=== PATIENT | male | born 1970 | race Caucasian/White ===

== ENCOUNTER 2020-11-05 17:12 | Inpatient (IN) | payer OTHER ==
[~2020-11-05] VITALS: Ht 165.1 cm; Wt 73.5 kg
[2020-11-05 17:42] LABS: HEMATOCRIT 42.8 % (42.0-52.0); HEMOGLOBIN 14.1 gm/dL (14.0-18.0); MCH 26.9 pg (26.0-34.0); MCHC 32.9 g/dL (28.0-37.0); MCV 81.8 fL (80.0-100.0); PLATELET COUNT 399 thou/uL (150-400); RBC 5.23 mil/uL (4.50-6.00); RDW 13.8 % (10.5-14.5); WBC 30.8 thou/uL (4.0-11.0)
[2020-11-05 17:50] LABS: CALCIUM 8.1 mg/dL (8.5-10.1); CREATININE 0.8 mg/dL (0.7-1.3); POTASSIUM 3.7 mmol/L (3.5-5.1)
[2020-11-05 17:54] VITALS: BP 150/95
[2020-11-05 18:04] LABS: ABSOLUTE NEUTROPHILS 23.1 thou/uL (1.4-8.2); ATYPICAL LYMPHS 4 %; PLATELET ESTIMATE NORMAL
[2020-11-05 18:06] LABS: ALBUMIN 2.4 g/dL (3.4-5.0); TOTAL BILIRUBIN 1.5 mg/dL (0.2-1.0); TOTAL PROTEIN 6.8 g/dL (6.4-8.2)
[2020-11-05 18:58] LABS: URINE BILIRUBIN NEGATIVE (Negative); URINE BLOOD NEGATIVE (Negative); URINE CLARITY CLEAR; URINE COLOR YELLOW; URINE GLUCOSE-RANDOM* NEGATIVE (Negative); URINE KETONES NEGATIVE (Negative); URINE LEUKOCYTES-REFLEX NEGATIVE (Negative); URINE NITRITE-REFLEX NEGATIVE (Negative); URINE PROTEIN (DIPSTICK) NEGATIVE (Negative); URINE SPECIFIC GRAVITY <= 1.005 (1.005-1.035)
--- NOTE | 2020-11-05 19:02 | NUR ---
REPORT GIVEN TO ACE ROME AT THIS TIME.
--- NOTE | 2020-11-05 20:24 | NUR ---
Pt gives permission to give health information to sister in law-Fredy and brother Leander
[2020-11-05 20:25] VITALS: BP 126/74
[2020-11-05 20:34] VITALS: BP 117/72
[2020-11-05 21:47] VITALS: BP 120/78
--- NOTE | 2020-11-05 23:18 | NUR ---
ADMISSION ASSESSMENT COMPLETED VIA PAID INTERNSHIP. ORIENTED TO ROOM AND USE OF CALL LIGHT. PT REPORTS A CONSTANT PAIN TO LLQ- MORPHINE GIVEN WITH RELIEF. PT DENIES ANY NAUSEA OR VOMITING. FEVER OF 100.3, TYLENOL GIVEN. IVF AND ABTS INFUSING. HARRINGTON TO D/D-DARK NOAH U/O NOTED-GOOD AMT.PT IS PLEASANT AND COOPERATIVE.SCDS APPLIED. ADVISED TO CALL WITH NEEDS. HE IS STEADY ON HIS FEET WITH NO FALL PRIORS-BUT WITH HARRINGTON AND IV TUBING AND OPIOIDS, HE WILL NEED SBA FOR NOW. EDUCATION PROVIDED-CONSENTS HOWEVER NOT SIGNED BECAUSE THEY ARE ALL IN AF[place]AN.WILL CONTINUE WITH POC TILL EOS.
[2020-11-06 05:16] LABS: HEMATOCRIT 39.4 % (42.0-52.0); HEMOGLOBIN 13.1 gm/dL (14.0-18.0); MCH 27.7 pg (26.0-34.0); MCHC 33.1 g/dL (28.0-37.0); MCV 83.5 fL (80.0-100.0); RBC 4.72 mil/uL (4.50-6.00)
[2020-11-06 05:39] LABS: CALCIUM 7.8 mg/dL (8.5-10.1); CREATININE 0.7 mg/dL (0.7-1.3); POTASSIUM 3.8 mmol/L (3.5-5.1)
[2020-11-06 07:47] VITALS: BP 123/76
--- NOTE | 2020-11-06 09:59 | NUR ---
ASSUMED PT CARE THIS AM. PT IS ALERT & ORIENTED X4 AND SPEAKS SERBIAN AND A LITTLE BIT OF MONTENEGRIN WHEN ASKED. PT HAS IV SITE ON L FA. PT HAS HARRINGTON CATH IN PLACE. PT IS ACCUCHECK ACHS. PT STATED LAST BM WAS YESTERDAY. PT HAS SCD ON. INFORMED MD ABOUT PT FEVER THIS AM AND GIVEN TYLENOL. PLACED A COOL WASH CLOTH ON THE FOREHEAD. PT TOLERATED DIET THIS AM. PT ON THE BED SLEEPING, BED ON THE LOWEST POSITION, SIDE RAILS UP, CALL LIGHT WITHIN REACH. WILL CONTINUE TO MONITOR PT. FOLLOW POC.
[2020-11-06 17:28] VITALS: BP 142/94
[2020-11-06 19:56] VITALS: BP 140/98
--- NOTE | 2020-11-06 23:18 | NUR ---
ASSUMED PT CARE AT AROUND 1915 HRS. PT WITH FAMILY IN ROOM-FAMILY ASKING FOR THE PLAN OF CARE. I SPOKE VIA FACE TIME TO PT'S NIECE WHO SPEAKS YORUBA. QUESTIONS ANSWERED. LATER DR DOUGHERTY CALLED [facility] AND REPORTED THAT THEY WILL ROUND ON PATIENT TOMORROW. PT IS NPO. FEBRILE-CONTROLLED BY TYLENOL. PT IS GETTING MORPHINE FOR LLQ PAIN-RATES THE PAIN AT AROUND 7-8/10.PT IS ALSO ALLISONT EYAL, ACCUCHECK @139. PT DOES NOT APPEAR TO BE IN ANY DISTRESS AT THIS TIME, REMAINS ON ROOM AIR, HARRINGTON TO D/D WITH DARK YELLOW UIRNE OUTPUT. NO FURTHER CONCERNS AT THIS TIME. WILL CONTINUE WITH POC TILL EOS.
[2020-11-07 04:03] VITALS: BP 126/89
[2020-11-07 05:17] LABS: HEMATOCRIT 40.1 % (42.0-52.0); HEMOGLOBIN 13.1 gm/dL (14.0-18.0); MCH 27.6 pg (26.0-34.0); MCHC 32.7 g/dL (28.0-37.0); MCV 84.4 fL (80.0-100.0); RBC 4.74 mil/uL (4.50-6.00); RDW 14.1 % (10.5-14.5); WBC 29.9 thou/uL (4.0-11.0)
[2020-11-07 05:30] LABS: CALCIUM 8.2 mg/dL (8.5-10.1); CREATININE 0.8 mg/dL (0.7-1.3); POTASSIUM 4.7 mmol/L (3.5-5.1)
[2020-11-07 07:34] VITALS: BP 131/85
--- NOTE | 2020-11-07 08:42 | NUR ---
ASSUMED CARE OF PT AT 0700 THIS MORNING. PT WAS ADMITTED FOR DIVERTICULITIS AND ACUTE URINARY RETENTION. PT IS VENEZUELAN SPEAKING ONLY. PT HAS BEEN ON NPO STATUS UNTIL 0820 THIS MORNING AND IS NOW ON CLEAR LIQUIDS DIET. RN STUDENT IS VENEZUELAN SPEAKING AND HAS HELPED TO TRANSLATE FOR DR. SÁNCHEZ. PT IS A/OX4, LUNGS CLEAR BILAT, EYES PERRLA, NEURO - UNREMARKABLE, ABD SOFT NONTENDER WITH ACTIVE BOWEL SOUNDS. IV IN LEFT FA WITH D5W @ 75ML/HR. SCD'S IN PLACE. ASSESSMMENTS OTHERWISE UNREMARKABLE. CALL LIGHT AND OTHER NEEDS ARE WITHIN REACH OF THE PT.
--- NOTE | 2020-11-07 12:17 | NUR ---
INITIAL ASSESSMENT: FRANCIS reviewed chart and spoke with nursing and attending physician. Pt was admitted from home due to diverticulitis. Surgery is following. Pt started on clear liquids today. Pt is primarily German speaking. Staff has been communicating with pt's niece, who is communicating with pt and family. FRANCIS left voice message for pt's niece, Kerry ([phone]). Requested call back to assist with assessment and discharge planning. Pt does not have health insurance. Pt was screened by [employer] and does not qualify for Medicaid. Plan is for pt to discharge home when medically stable. FRANCIS is following to assist as needed with discharge planning.
--- NOTE | 2020-11-07 18:03 | NUR ---
agree with the RIG MECHANICOusmane Naik's assessment.
[2020-11-07 19:55] VITALS: BP 127/73
--- NOTE | 2020-11-08 04:33 | NUR ---
RECEIVED CARE OF THIS PATIENT AT 1900. PATIENT ALERT AND ORIENTED X4. PATIENT UNDERSTANDS SOME MONGOLIAN BUT HAD FAMILY TRANSLATE SOME. C/O MILD PAIN IN LOWER R ABD. REFUSED PAIN MED. ACCUCHECK WAS 130, NO COVERAGE NEEDED. HARRINGTON PATENT DARK YELLOW URINE. NPO SINCE MN. SLEPT MOST OF NIGHT.
[2020-11-08 05:20] LABS: HEMATOCRIT 38.9 % (42.0-52.0); HEMOGLOBIN 12.5 gm/dL (14.0-18.0); MCH 27.1 pg (26.0-34.0); MCV 84.6 fL (80.0-100.0); RBC 4.6 mil/uL (4.50-6.00); RDW 13.7 % (10.5-14.5); WBC 20.9 thou/uL (4.0-11.0)
[2020-11-08 05:27] LABS: CREATININE 0.8 mg/dL (0.7-1.3); MAGNESIUM 2.1 mg/dL (1.8-2.4); POTASSIUM 4.7 mmol/L (3.5-5.1)
[2020-11-08 07:42] VITALS: BP 118/78
[2020-11-08 12:01] VITALS: BP 123/81
--- NOTE | 2020-11-08 12:02 | NUR ---
ASSUMED PT CARE AROUND 0700. PT ALERT X ORIENTED X 4. ON ROOM AIR. STAND BY ASST. IV LF/FAWITH D5/NS/125MLS/HR. NPO SINCE MIDNIGHT.HAD CAT SCAN TODAY MORNING.HARRINGTON CATHTER WITH SLIGHT YELLOW URINE. FAMILY IN THE ROOM. PT SPEAKS ESPANIOL. CALL LIGHT IN REACH. WILL CONTINUE TO MONITOR.
--- NOTE | 2020-11-08 14:40 | NUR ---
CM VISITED WITH PT AT BEDSIDE THIS DAY AND PT CONSENTED FOR STUDENT NURSE MATERIAL YARD CLERK TO TRANSLATE. HE INDICATED THAT HE RESIDES IN AN APARTMENT IN [place] WITH HIS BROTHER WITH 2 FLIGHTS OF STEPS TO NAVIGATE. PT INDICATED HE HAD BEEN INDEPENENT WITH GAIT AND ADLS VP GENETIC. PT AND FAMILY INDICATED THAT THEY WOULD BE ABLE TO PAY TO FILL PERSCRIPTIONS UPON DC. PT INDICATED HE PLANS TO RETURN HOME ONCE MEDICALLY STABLE. CARE TEAM INDICATED THAT PT MAY BE ABLE TO DC HOME OVER WEEKEND. NO DC NEEDS ANTICIPATED.
[2020-11-08 16:12] VITALS: BP 122/73
[2020-11-08 19:15] VITALS: BP 116/67
--- NOTE | 2020-11-09 04:39 | NUR ---
RECIEVED CARE OF THIS PATIENT AT 1900. PATIENT ALERT AND ORIETED X4. UP IN RECLINER OFF AND ON DURING NIGHT. C/O PAIN, MED GIVEN, HARRINGTON PATENT CLEAR YELLOW URINE. ACCUCHECK WAS 113. NO COVERAGE NEEDED. SLEPT OFF AND ON DURING NIGHT.
[2020-11-09 04:44] LABS: CALCIUM 8.2 mg/dL (8.5-10.1); CREATININE 0.8 mg/dL (0.7-1.3); POTASSIUM 4.3 mmol/L (3.5-5.1)
[2020-11-09 04:47] LABS: HEMATOCRIT 38.3 % (42.0-52.0); HEMOGLOBIN 12.6 gm/dL (14.0-18.0); MCH 27.6 pg (26.0-34.0); MCHC 32.9 g/dL (28.0-37.0); RBC 4.56 mil/uL (4.50-6.00); RDW 13.9 % (10.5-14.5); WBC 19.3 thou/uL (4.0-11.0)
[2020-11-09 07:05] VITALS: BP 112/78
--- NOTE | 2020-11-09 16:38 | NUR ---
ASSUMED PT CARE THIS AM. PT IS ALERT & ORIENTED X4. PT HAS IV SITE ON L FA. PT UP WITH ASSIST X1 AND HAVE A BATHROOM PRIVILEDGE. PT IS ACCUCHECK ACHS. PT C/O OF PAIN AND GIVEN PAIN MEDICATION PER PT REQUEST. PT HAS HARRINGTON CATH IN PLACE. PT IS ON ROOM AIR. LAST BM WAS TODAY. BEEN GIVING ANTIBIOTICS PER ORDERED. PT FAMILY AT THE BEDSIDE. PT ON THE CHAIR TALKING TO FAMILY. WILL CONTINUE TO MONITOR PT. FOLLOW POC.
[2020-11-09 16:48] VITALS: BP 128/76
[2020-11-09 20:01] VITALS: BP 129/74
[2020-11-10 04:53] LABS: HEMOGLOBIN 12.3 gm/dL (14.0-18.0); MCH 27.4 pg (26.0-34.0); MCHC 32.5 g/dL (28.0-37.0); MCV 84.5 fL (80.0-100.0); RBC 4.5 mil/uL (4.50-6.00); RDW 14.1 % (10.5-14.5); WBC 12.8 thou/uL (4.0-11.0)
[2020-11-10 05:05] LABS: CALCIUM 8.3 mg/dL (8.5-10.1); CREATININE 0.7 mg/dL (0.7-1.3); POTASSIUM 4.2 mmol/L (3.5-5.1)
--- NOTE | 2020-11-10 05:23 | NUR ---
ASSUMED CARE OF PT AT 1900. PT IS A/O X4 AND IS UP AD ANGEL. 99% ON ROOM AIR. VSS. AFEBRILE. HARRINGTON IN PLACE DRAINING YELLOW URINE. NO BM THIS SHIFT. C/O ABDOMINAL PAIN. PRN PAIN MEDICATION GIVEN DIRECTED. PT IS PLEASANT AND COOPERATIVE. TUVALUAN SPEAKING BUT DOES UNDERSTAND MOST EQUATORIAL GUINEAN AND IS ABLE TO COMMUNICATE AND MAKE NEEDS KNOWN. HS BS DID NOT REQUIRE COVERAGE. PT CHOSE TO SLEEP IN RECLINING CHAIR STATING THE BED MADE IS BACK HURT THE PREVIOUS NIGHT. ELEVATED BILAT FEET ON FOOT REST. REQUESTED PRN HS SLEEP MEDICATION. GIVEN DIRECTED. CALL LIGHT IS WITHIN REACH. CALLS OUT APPROPRIATELY. WILL CONTINUE TO MONITOR.
[2020-11-10 07:30] VITALS: BP 123/83
--- NOTE | 2020-11-10 11:22 | NUR ---
ASSUMED PT CARE THIS AM. PT IS ALERT & ORIENTED X4. PT HAS IV SITE ON L FA. PT IS UP AD ANGEL AND USES BATHROOM. REMOVED HARRINGTON THIS AM PER DR DOUGHERTY ORDERED. PT IS ACCUCHECK ACHS. PT RATED PAIN 07/21 THIS AM. PT TOLERATED DIET AND MEDICATION WELL. PT ON THE CHAIR. WILL CONTINUE TO MONITOR PT. FOLLOW POC.
[2020-11-10 16:25] VITALS: BP 135/89
[2020-11-10 18:53] VITALS: BP 136/74
--- NOTE | 2020-11-11 04:30 | NUR ---
patient up in chair thru noc reclined with feet elevated. stated was sleeping in chair. c/o pain x2 prn given as ordered. iv abt infused w/o difficulties.
[2020-11-11 05:40] LABS: HEMATOCRIT 38.8 % (42.0-52.0); HEMOGLOBIN 12.5 gm/dL (14.0-18.0); MCH 27.3 pg (26.0-34.0); MCHC 32.3 g/dL (28.0-37.0); MCV 84.5 fL (80.0-100.0); RBC 4.59 mil/uL (4.50-6.00); RDW 13.9 % (10.5-14.5); WBC 14.7 thou/uL (4.0-11.0)
[2020-11-11 05:54] LABS: CALCIUM 8.4 mg/dL (8.5-10.1); CREATININE 0.7 mg/dL (0.7-1.3); POTASSIUM 4.1 mmol/L (3.5-5.1)
[2020-11-11 07:26] VITALS: BP 118/76
--- NOTE | 2020-11-11 07:42 | HC ---
[facility] [place] [address] CONSULTATION Name: CHLOE CHEN Room #: 457-P ADM IN M.R.#: [id number] Admission: 11/05/20 Attend Phys: Lopez Mason MD Discharge: Date of : 72 Report #: [id number] THIS REPORT FOR: cc: FAM - No family physician/PCP FAM - No family physician/PCP Daryl Borges MD ~ DOC #: [id number] Daryl Borges MD DATE OF SERVICE: 11/07/2020 INFECTIOUS DISEASE CONSULTATION ATTENDING PHYSICIAN: Dr. Mason. REASON FOR EVALUATION: Diverticulitis complicated by perforation and peritonitis, multiple small abscesses. HISTORY OF PRESENT ILLNESS: The patient is a 50-year-old without significant medical history who presented apparently with a 2-day history of left lower quadrant pain, fever, nausea and emesis as well as diarrhea. Initial lactic acid was 1.1. White count was elevated at 30.8. Does have some atypical lymphs. CT abdomen and pelvis, extensive inflammatory changes, left pelvis involving the left sigmoid colon, multiple areas of stranding and small fluid collections adjacent to the sigmoid and left pelvis to the left pericolic gutter and the left psoas muscle. Urinalysis was unremarkable. Blood cultures collected at time of admission are negative thus far. Empirically started on piperacillin, tazobactam. He feels significantly better in terms of severity of the pain and rates it at 2/10 actively pushing on it. Denies any GI related complaints at this point. No pulmonary complaints. His appetite has been satisfactory. ALLERGIES: None known. MEDICATIONS: Include Zosyn, enoxaparin, morphine, hydrocodone, zolpidem, p.r.n. analgesics, and antiemetics. PAST SURGICAL HISTORY: Previous appendectomy. SOCIAL HISTORY: Nonsmoker. Occasional ethanol. No illicit drug use. FAMILY HISTORY: Noncontributory. REVIEW OF SYSTEMS: Otherwise, unremarkable. Ten-point review of systems. PHYSICAL EXAMINATION: GENERAL: Pleasant, alert, cooperative, mild to moderate distress, appears [facility] [address] [place] [address] CONSULTATION Name: CHLOE CHEN Room #: 457-P [facility] IN M.R.#: [id number] Admission: 11/05/20 Attend Phys: Lopez Mason MD Discharge: Date of : 72 Report #: [id number] reasonably well-nourished. VITAL SIGNS: Temperature max 101.2 last evening, more recently 98.1, pulse 95, respirations 16, blood pressure 131/85. SKIN: Warm, dry, no rashes. HEENT: Normocephalic. Extraocular muscles intact. NECK: Supple. LUNGS: Somewhat diminished, generally clear. HEART: Regular, borderline tachycardic. I do not appreciate a murmur. ABDOMEN: Somewhat distended. There are no overt peritoneal signs, not percussible to tenderness in the left side. GENITOURINARY AND RECTAL: Deferred. LABORATORY DATA: Electrolytes: Sodium 139, potassium 4.7, chloride 104, bicarbonate 30, anion gap of 5, BUN and creatinine 10 and 0.8, glucose of 135. Estimated GFR 103. CBC: White count of 29.9, H and H 13.1 and 40.1, of 84.4, platelet count of 347. Sodium 135, potassium 3.[address] abdomen and pelvis as noted above. Lactic acid 1.1. ASSESSMENT: Diverticulitis complicated by perforation with multiple small abscesses and peritonitis with marked leukocytosis some atypical lymphocytes as well. PLAN: We will continue empiric therapy with Zosyn should give us a reasonable coverage for fecal and I would expect the polymicrobial etiology including aerobes and anaerobes primarily gram negatives and also enterococcus. He is improved. It is difficult to ascertain if this will be sufficient. I know that Surgery is evaluating. We will add incentive spirometry and do a peripheral smear to exclude some occult process. Try to optimize his nutritional status when able. MD JAZMIN Kwan/GENTRY/JAMES <ELECTRONICALLY SIGNED> By: Daryl Borges MD 11/11/20 0742 [id number] Daryl Borges MD /nt
--- NOTE | 2020-11-11 11:35 | NUR ---
ASSUMED PT CARE THIS AM. PT IS ALERT & ORIENTED X4. OT HAS IV SITE ON L FA. PT IS ACCUCHECK ACHS. PT STATED HAD BM THIS MORNING. PT IS UP AD ANGEL. DR SEEN PATIENT TODAY. PT TOLERATED DIET THIS AM. PT ON THE CHAIR. CALL LIGHT WITHIN REACH. WILL CONTINUE TO MONITOR PT. FOLLOW POC.
[2020-11-11] MEDS ORDERED: ERTAPENEM1 GM IV (14:48)
[2020-11-11 14:56] VITALS: BP 117/77
[2020-11-11 15:03] VITALS: BP 117/77
[2020-11-11 15:10] VITALS: BP 117/77
--- NOTE | 2020-11-11 15:16 | NUR ---
CARE TEAM INDICATED THAT PT NEEDS SET UP FOR MANUELA OP INFUSION HERE AT [facility]. CM EMAILED CARE TEAM AND APPROVAL WAS RECEIVED. CM FAXED ORDERS TO OP INFUSION AND SCHEDULING. PT IS SET UP WITH APPOINTMENT TOMORROW AT 1300. CM PROVIDED INFO IN FAROESE IN HIS DISCHARGE PAPERWORK. PT INDICATED THAT HE IS ABLE TO FILL MEDICATIONS UPON DC. PT IS TO HAVE OP INFUSION HERE AT [facility] INVANZ 1G IV DAILY FOR [address] BROWN TO FOLLOW. NO OTHER CM INTERVENTION INDICATED. CASE CLOSED. YOU ARE SCHEDULED FOR OUTPATIENT INFUSION FOR IV ANTIBIOTICS DAILY HERE AT [facility] FOR THE NEXT TWO WEEKS. PLEASE COME TO MAIN ENTERANCE AT 12:45 TOMORROW Wednesday11/12/20 TO BE DIRECTED TO INFUSION CLINIC. 1:00 IS YOUR NORMAL APPOINTMENT TIME. INFUSION CLINIC . TIENE PROGRAMADO PARA LA INFUSI N PARA PACIENTES AMBULATORIOS DE ANTIBIOTICOS IV DIARIAMENTE AQU EN [facility] BILL LAS PROXIMAS DOS SEMANAS.POR FAVOR VENGA AL ENTRETENIMIENTO PRINCIPAL A LAS 12:45 MA WILIAN EDGARD 11/12/20 PARA SER DIRIGIDO A LA CLINICA DE INFUSION. 1:00 ES LA HORA NORMAL DE [facility]. [facility]INICA DE INFUSIONES [phone]. 1:00 ES LA [facility]ORA NORMAL DE [facility]. CL [facility] DE INFUSIONES . POR FAVOR VENGA AL ENTRETENIMIENTO PRINCIPAL A LAS 12:45 MA WILIAN EDGARD 11/12/20 PARA SER DIRIGIDO A LA CL [facility] DE INFUSI N. 1:00 ES LA HORA NORMAL DE [facility]. CL [facility] DE INFUSIONES .
--- NOTE | 2020-11-11 16:17 | NUR ---
VAT CONSULTED FOR PICC FOR HOME ABX. PT'S LABS,MEDS,HX,ORDER AND CONSENT VERIFIED. GAURI MELENDREZ WAS WIDELY PATENT WITH USG. 4FR SL POWER PICC TRIMMED TO 45CM INSERTED TO 1CM EXTERNAL. PT TOLERATED WELL. STAT CXR CONFIRMED PLACEMENT AT [facility]. PICC RELEASED FOR IMMEDIATE USE PER [id number] TO CHINO BELLO
== END 2020-11-11 18:00 | disposition home or self-care (01) | DRG 871 ==
LOC: ER 17:12 → EROBS 19:39 → 4S 19:39 → 4W 11-07 16:38
PROVIDERS: Hospitalist; Internal Medicine; Nurse Practitioner Family; Surgery; ADMIT Internal Medicine; ATTEND Internal Medicine
PROC: 02HV33Z Insertion of Infusion Device into Superior Vena Cava, Percutaneous Approach (ICD-10-PCS; principal; 2020-11-11)
PROC: B548ZZA Ultrasonography of Superior Vena Cava, Guidance (ICD-10-PCS; principal; 2020-11-11)
DX: A41.9 Sepsis, unspecified organism (principal); K35.32 Acute appendicitis with perforation, localized peritonitis, and gangrene, without abscess; K57.20 Diverticulitis of large intestine with perforation and abscess without bleeding; R33.9 Retention of urine, unspecified; E66.9 Obesity, unspecified; R73.9 Hyperglycemia, unspecified; I10 Essential (primary) hypertension; Z90.49 Acquired absence of other specified parts of digestive tract; Z79.899 Other long term (current) drug therapy; Z68.27 Body mass index [BMI] 27.0-27.9, adult
CPT/HCPCS: 10040; 10195; 27000

== ENCOUNTER → 2020-11-12 | Outpatient (CLI) | payer OTHER ==
[~2020-11-12] MED LIST: ERTAPENEM1 GM IV
[2020-11-12 13:49] VITALS: BP 141/82
--- NOTE | 2020-11-12 14:28 | NUR ---
IN FOR DAILY ERTAPENEM INFUSION FOR ACUTE DIVERTICULITIS WITH ABSCESS. PATIENT STATED FEELING WELL TODAY WITH NO C/O PAIN. ADMISSION HISTORY AND ASSESSMENT COMPLETED. PATIENT'S SISTER MONI ACCOMPANIED PATIENT. MONI HAD AN LIBERIAN TRANSLATER CARLOS ON HER PHONE. PATIENT ABLE TO UNDERSTAND MOST LIBERIAN. PICC TO GAURI INTACT WITH GOOD BLOOD RETURN. TOLERATED INFUSION WITHOUT INCIDENT. CARE NOTE ON ERTAPENEM GIVEN IN KOSOVAN TO HELP EXPLAIN SIDE EFFECTS AND PRECAUTIONS. PATIENT STATED UNDERSTANDING. CHANGED PICC DRESSING. TO RETURN DAILY AT 1500 FOR HIS INFUSION, EXCEPT ON THE WEEKENDS AND WILL COME AT 0800 ON WEEKENDS. DISMISSED IN STABLE CONDITION.
== END ==
LOC: OPONC 11:48
PROVIDERS: ATTEND Specialist
DX: K57.20 Diverticulitis of large intestine with perforation and abscess without bleeding (principal); D72.829 Elevated white blood cell count, unspecified; R33.9 Retention of urine, unspecified
CPT/HCPCS: 95000

== ENCOUNTER → 2020-11-13 | Outpatient (CLI) | payer OTHER ==
[2020-11-13 14:40] VITALS: BP 126/80
--- NOTE | 2020-11-13 15:15 | NUR ---
PT HERE FOR DAILY IV ERTAPENEM. REPORTS DOING WELL. DENIES N/V, PAIN, FEVER/CHILLS. STATES BOWELS MOVING OK, NO DIARRHEA. EATING WELL. USED INTERPRETOR CARLOS ON SISTER'S PHONE TO FACILITATE COMMUNICATION. PT VERBALIZED UNDERSTANDING. SPOKE WITH DR. BROWN EARLIER TODAY TO CONFIRM PLAN FOR LABS AND PHYSICIAN FOLLOW UP. PT DISMISSED IN STABLE CONDITION. WILL RETURN AGAIN TOMORROW AFTERNOON.
== END ==
LOC: OPONC 14:57
PROVIDERS: ATTEND Specialist
DX: K57.20 Diverticulitis of large intestine with perforation and abscess without bleeding (principal)
CPT/HCPCS: 95000

== ENCOUNTER → 2020-11-14 | Outpatient (CLI) | payer OTHER ==
[2020-11-14 14:45] VITALS: BP 137/83
--- NOTE | 2020-11-14 16:00 | NUR ---
HERE FOR DAILY IV ERTAPENEM INFUSION. REPORTS DOING WELL, FEELING WELL. REPORTS MINIMAL PAIN LLQ, 07/21. DENIES N/V/DIARRHEA. STATES EATING WELL. TOLERATED INFUSION WITHOUT INCIDENT. DISMISSED IN STABLE CONDITION. WILL RETURN AGAIN TOMORROW AFTERNOON.
== END ==
LOC: OPONC
PROVIDERS: ATTEND Specialist
DX: K57.20 Diverticulitis of large intestine with perforation and abscess without bleeding (principal)
CPT/HCPCS: 95000

== ENCOUNTER → 2020-11-15 | Outpatient (CLI) | payer OTHER ==
[2020-11-15 15:00] VITALS: BP 130/75
--- NOTE | 2020-11-15 15:45 | NUR ---
HERE FOR DAILY IV ERTAPENEM INFUSION. REPORTS DOING WELL, FEELING WELL. MINIMAL LLQ ABD DISCOMFORT. DENIES N/V/DIARRHEA. USED KYRGYZ SPEAKING EMPLOYEE INTERPRETOR (ICE PULLER) ON PHONE THIS AFTERNOON TO VERIFY THAT PT IS UNDERSTANDING ALL INSTRUCTIONS. ALSO FOUND THAT PT IS SUPPOSED TO SEE DR. SÁNCHEZ IN F/U AND THAT APPT HAD NOT YET BEEN SET. CALLED TO MAKE THAT APPT FOR WEDNESDAY, 11/22 AT 1400. PT TOLERATED INFUSION TODAY WITHOUT INCIDENT. DISMISSED IN STABLE CONDITION. WILL COME TO THE ED FOR WEEKEND INFUSIONS THEN RETURN HERE ON WEDNESDAY AT 1000.
== END ==
LOC: OPONC
PROVIDERS: ATTEND Specialist
DX: K57.20 Diverticulitis of large intestine with perforation and abscess without bleeding (principal)
CPT/HCPCS: 95000

== ENCOUNTER → 2020-11-16 | Outpatient (CLI) | payer OTHER | LOC: OPONC | PROVIDERS: ATTEND Specialist | DX: K57.80 Diverticulitis of intestine, part unspecified, with perforation and abscess without bleeding (principal) | CPT/HCPCS: 95000 ==

== ENCOUNTER → 2020-11-17 | Outpatient (CLI) | payer OTHER | LOC: OPONC 11:23 | PROVIDERS: ATTEND Specialist | DX: K57.80 Diverticulitis of intestine, part unspecified, with perforation and abscess without bleeding (principal) | CPT/HCPCS: 95000 ==

== ENCOUNTER → 2020-11-18 | Outpatient (CLI) | payer OTHER ==
[2020-11-18 10:20] VITALS: BP 118/75
--- NOTE | 2020-11-18 10:53 | NUR ---
HERE FOR DAILY IV ERTAPENEM INFUSION. REPORTS DOING WELL, FEELING WELL. RATES LLQ PAIN AT A 1/10, NO CHANGE--NOT BETTER, NOT WORSE. DENIES N/V/DIARRHEA, FEVER/CHILLS. STATES EATING AND DRINKING OK AND BOWELS MOVING. STATES INFUSIONS ON THE WEEKEND WENT WELL IN THE ED. TOLERATED TODAY'S INFUSION WITHOUT INCIDENT. CALLED TO SET UP APPT WITH DR. SÁNCHEZ IN HIS OFFICE HERE AT [facility] FOR 1400, 11/22/20. OK'D THIS WITH THE PATIENT AND HIS SISTER WHO WILL BE BRINGING HIM. SCHEDULED TO RETURN AGAIN TOMORROW.
== END ==
LOC: OPONC 11:27
PROVIDERS: ATTEND Specialist
DX: K57.80 Diverticulitis of intestine, part unspecified, with perforation and abscess without bleeding (principal)
CPT/HCPCS: 95000

== ENCOUNTER → 2020-11-19 | Outpatient (CLI) | payer OTHER ==
[2020-11-19 15:02] VITALS: BP 127/86
--- NOTE | 2020-11-19 15:47 | NUR ---
IN FOR DAILY ERTAPENEM INFUSION FOR PERFORATED DIVERTICULITIS WITH ABSCESS. PATIENT STATED FEELING WELL WITH NO C/O NAUSEA, DIARRHEA, FEVER/CHILLS AND PAIN. STATED EATING WELL. MICHELLE LABS FROM PICC LINE WITHOUT DIFFICULTY AND FLUSHED EASILY. SITE WNL. TOLERATED INFUSION WITHOUT INCIDENT. TO RETURN TOMORROW FOR THE SAME AND TO SEE DR. BROWN. DISMISSED IN GOOD CONDITION.
[2020-11-19 15:51] LABS: ABSOLUTE NEUTROPHILS 9.8 thou/uL (1.4-8.2); BASOPHILS 1.1 % (0.0-2.0); EOSINOPHILS 5.4 % (0.0-3.0); HEMATOCRIT 40.8 % (42.0-52.0); HEMOGLOBIN 13.9 gm/dL (14.0-18.0); LYMPHOCYTES 18.2 % (24.0-44.0); MCH 28.1 pg (26.0-34.0); MCHC 33.9 g/dL (28.0-37.0); MCV 82.9 fL (80.0-100.0); MONOCYTES 6.4 % (1.0-8.0); PLATELET COUNT 542 thou/uL (150-400); POLYS 68.9 % (36.0-66.0); RBC 4.93 mil/uL (4.50-6.00); RDW 13.9 % (10.5-14.5); WBC 14.2 thou/uL (4.0-11.0)
[2020-11-19 16:05] LABS: CALCIUM 8.9 mg/dL (8.5-10.1); CREATININE 0.7 mg/dL (0.7-1.3); POTASSIUM 3.8 mmol/L (3.5-5.1); TOTAL BILIRUBIN 0.4 mg/dL (0.2-1.0); TOTAL PROTEIN 8.1 g/dL (6.4-8.2)
== END ==
LOC: OPONC 09:04
PROVIDERS: ATTEND Specialist
DX: K57.80 Diverticulitis of intestine, part unspecified, with perforation and abscess without bleeding (principal)
CPT/HCPCS: 95000

== ENCOUNTER → 2020-11-20 | Outpatient (CLI) | payer OTHER ==
[2020-11-20 14:30] VITALS: BP 129/83
--- NOTE | 2020-11-20 15:10 | NUR ---
HERE FOR DAILY IV ERTAPENEM. ALSO SAW DR. BROWN TODAY WITH PLAN PUT IN PLACE TO CONTINUE IV ERTAPENEM FOR [address] BROWN AGAIN NEXT WEEK ON WED. PT TO SEE DR. SÁNCHEZ AT THE [facility] OFFICE ON WEDNESDAY AT 1400. USED INTERPRETOR PHONE SERVICE TO FACILITATE COMMUNICATION BETWEEN DR. BROWN, PATIENT AND HIS SISTER AND TO CONFIRM THAT HE UNDERSTANDS THE PLAN. PT WITHOUT COMPLAINTS. STATES PAIN IS NOW GONE. EATING/DRINKING WELL. NO CONCERNS NOTED. TOLERATED INFUSION WITHOUT INCIDENT. DISMISSED IN STABLE CONDITION. WALKED PATIENT OUT TO SHOW HIM WHERE DR. SÁNCHEZ' OFFICE IS FOR HIS WEDNESDAY INFUSION.
== END ==
LOC: OPONC 09:25
PROVIDERS: ATTEND Specialist
DX: K57.20 Diverticulitis of large intestine with perforation and abscess without bleeding (principal)
CPT/HCPCS: 95000

== ENCOUNTER → 2020-11-21 | Outpatient (CLI) | payer OTHER ==
[2020-11-21 15:03] VITALS: BP 129/82
--- NOTE | 2020-11-21 15:46 | NUR ---
IN FOR DAILY ERTAPENEM INFUSION FOR PERFORATED DIVERTICULITIS WITH ABSCESS. PATIENT DENIED NAUSEA, DIARRHEA, PAIN, FEVER AND CHILLS. PICC SITE WNL WITH GOOD BLOOD RETURN. TOLERATED INFUSION WITHOUT INCIDENT. SCHEDULED TO RETURN TOMORROW. DISMISSED IN GOOD CONDITION.
== END ==
LOC: OPONC 09:28
PROVIDERS: ATTEND Specialist
DX: K57.20 Diverticulitis of large intestine with perforation and abscess without bleeding (principal)
CPT/HCPCS: 95000

== ENCOUNTER → 2020-11-22 | Outpatient (CLI) | payer OTHER ==
[2020-11-22 14:10] VITALS: BP 123/81
--- NOTE | 2020-11-22 14:10 | NUR ---
HERE FOR DAILY IV ERTAPENEM INFUSION. STATES SAW DR. SÁNCHEZ THIS AFTERNOON RIGHT BEFORE OUR APPT. STATES DR. SÁNCHEZ WANTS HIM TO HAVE A COLONOSCOPY AND LIKELY SURGERY BUT NOT SURE WHERE PT CAN FIND SERVICES FOR THIS. PT NOT SURE WHAT TO DO NEXT. SENT A MESSAGE TO OUR CASE MANAGEMENT TEAM TO SEE IF THEY CAN PROVIDE ANY HELP WHEN PT RETURNS ON WEDNESDAY FOR HIS INFUSION. PT REPORTS FEELING WELL WITH NO PAIN, N/V/DIARRHEA OR FEVERS NOTED. TOLERATED INFUSION TODAY WITHOUT INCIDENT. WILL HAVE HIS WEEKEND INFUSIONS IN THE ED AND RETURN HERE ON WEDNESDAY AFTERNOON. DISMISSED IN STABLE CONDITION. COMMUNICATION FACILITATED TODAY BY USE OF THE HIDE AND SKIN CLASSER PHONE.
== END ==
LOC: OPONC 09:32
PROVIDERS: ATTEND Specialist
DX: K57.20 Diverticulitis of large intestine with perforation and abscess without bleeding (principal)
CPT/HCPCS: 95000

== ENCOUNTER → 2020-11-23 | Outpatient (CLI) | payer OTHER | LOC: OPONC 09:05 | PROVIDERS: ATTEND Specialist | DX: K57.20 Diverticulitis of large intestine with perforation and abscess without bleeding (principal) | CPT/HCPCS: 95000 ==

== ENCOUNTER → 2020-11-24 | Outpatient (CLI) | payer OTHER | LOC: OPONC 09:06 | PROVIDERS: ATTEND Specialist | DX: K57.20 Diverticulitis of large intestine with perforation and abscess without bleeding (principal) | CPT/HCPCS: 95000 ==

== ENCOUNTER → 2020-11-25 | Outpatient (CLI) | payer OTHER ==
[2020-11-25 15:00] VITALS: BP 140/92
--- NOTE | 2020-11-25 15:20 | NUR ---
HERE FOR HIS DAILY IV ERTAPENEM INFUSION. REPORTS DOING WELL, FEELING WELL. DENIES PAIN, N/V, FEVER. STATES BOWELS MOVING OK, EATING WELL. PICC SITE LOOKS GOOD, TOLERATING ERTAPENEM WITHOUT NOTED SIDE EFFECTS. TODAY WE SPOKE ABOUT PLAN MOVING FORWARD, NEED TO GO TO [place] TO GET A GI CONSULT AND COLONOSCOPY. SURGERY MAY BE POSSIBLE IN THE FUTURE. HE WILL SEE DR. BROWN HERE ON WED AND POSSIBLY STOP IV ANTIBIOTIC THEN. LABS WILL BE DRAWN TOMORROW. INTAKE PAPERWORK FOR [place] PROVIDED IN RUSSIAN BY OUR CASE MANAGEMENT BUTT WELDER, RUT. GIVEN TO PT WITH EXPLANATION TO FILL OUT. [id number], MONI, STATED THAT SHE HAS ALREADY CALLED [facility] TO SET PT UP FOR AN APPT. SHE SAYS SHE NEEDS AN ORDER AND MR FAXED OVER. THIS NURSE CALLED THE CLINIC AND LEFT A MESSAGE THIS AFTERNOON TO OBTAIN FAX # AND CONFIRM WHAT IS NEEDED. PT'S SISTER SPOKE WITH A NINFA AT [facility]. PT TOLERATED TODAY'S INFUSION WITHOUT INCIDENT. DISMISSED IN STABLE CONDITION. SCHEDULED TO RETURN TOMOMORROW. ALL COMMUNICATION SUPPORTED BY JEWEL SUPERVISOR SERVICE USED BY [facility]. PROVIDED PT WITH SOME EXPLANATION ABOUT WHAT TO EXPECT, WHY HE NEEDS A COLONOSCOPY TO EVALUATE THIS AREA OF DIVERTICULITIS, POSSIBILITY OF SURGERY AND REASON FOR SURGERY IF INDICATED. TEACHING SHEETS ON ALL OF THIS GIVEN TO PT IN RUSSIAN. PT AND [id number] VERBALIZE UNDERSTANDING OF PLAN.
== END ==
LOC: OPONC 09:08
PROVIDERS: ATTEND Specialist
DX: K57.20 Diverticulitis of large intestine with perforation and abscess without bleeding (principal)
CPT/HCPCS: 95000

== ENCOUNTER → 2020-11-26 | Outpatient (CLI) | payer OTHER ==
[2020-11-26 15:06] VITALS: BP 125/81
--- NOTE | 2020-11-26 15:49 | NUR ---
IN FOR DAILY ERTAPENEM INFUSION FOR PERFORATED DIVERTICULI WITH ABSCESS. PATIENT STATED TOLERATING INFUSIONS WITHOUT C/O NAUSEA, DIARRHEA, FEVER/CHILLS AND PAIN. PICC SITE WITHIN NORMAL LIMITS. MICHELLE LAB FROM PICC WITHOUT DIFFICULTY. TOLERATED INFUSION WITHOUT INCIDENT. SCHEDULED TO RETURN TOMORROW. PLAN IS TO POSSIBLY COMPLETE INFUSONS TOMORROW. DISMISSED IN GOOD CONDITION.
[2020-11-26 15:55] LABS: ABSOLUTE NEUTROPHILS 7.9 thou/uL (1.4-8.2); BASOPHILS 1.5 % (0.0-2.0); EOSINOPHILS 6.6 % (0.0-3.0); HEMATOCRIT 41.4 % (42.0-52.0); HEMOGLOBIN 13.7 gm/dL (14.0-18.0); MCH 27.6 pg (26.0-34.0); MCHC 33.1 g/dL (28.0-37.0); MCV 83.3 fL (80.0-100.0); PLATELET COUNT 514 thou/uL (150-400); POLYS 62.9 % (36.0-66.0); RBC 4.97 mil/uL (4.50-6.00); RDW 13.8 % (10.5-14.5); WBC 12.5 thou/uL (4.0-11.0)
[2020-11-26 16:06] LABS: ALBUMIN 3.1 g/dL (3.4-5.0); CALCIUM 9.1 mg/dL (8.5-10.1); CREATININE 0.6 mg/dL (0.7-1.3); POTASSIUM 3.5 mmol/L (3.5-5.1); TOTAL BILIRUBIN 0.5 mg/dL (0.2-1.0); TOTAL PROTEIN 7.9 g/dL (6.4-8.2)
== END ==
LOC: OPONC 10:27
PROVIDERS: ATTEND Specialist
DX: K57.20 Diverticulitis of large intestine with perforation and abscess without bleeding (principal)
CPT/HCPCS: 95000

== ENCOUNTER → 2020-11-27 | Outpatient (CLI) | payer OTHER ==
[2020-11-27 15:35] VITALS: BP 127/75
--- NOTE | 2020-11-27 15:54 | NUR ---
Movement Therapist visited with the pt and his sister in law Marlee to help translate for ID Dr. Borges and to formulate a followup plan for the pt's referral to [facility]. The outpt biology specimen technician has spoken with Yari at [facility] and faxed a referral/order from Dr. Begum recommending a colonoscopy and possible sigmoidectomy. They do not anticipate having an appointment at their [facility] location until January and not until February at their [place] locations. Pt's sister in law has spoken to the financial services dept and is making an appointment to apply for their discount. She is also working on raising the money for the $400 copay to get the scope scheduled more quickly. The pt is being switched to oral atb today and they will get it at [facility] using the [facility] for $14. The pt will return next week to see ID and get labs. At that time they will decide wether to leave the picc line or discontinue it pending how quickly the pt can get in at [facility]. A copy of the referral orders and clinical was given to the pt as well should he have an emergency situation and need his medical history. Marlee's number is [phone] if needed. She will being him again next week. The pt is still off work and does not plan to return for another week or so as he has to do a lot of heavy lifting.
--- NOTE | 2020-11-27 17:09 | NUR ---
PATIENT ARRIVED AMBULATORY FOR LAST DOSE OF ERTAPENEM. ACCOMPANIED BY [id number]. DR. BROWN HERE TO SEE PATIENT. ORDERS NOTED AND SCRIPT GIVEN TO PATIENT. PATIENT COMPLETED IV ANTIBIOTIC TREATMENT TODAY. TO RETURN IN ONE WEEK FOR LABS AND TO SEE DR. BROWN. PLACED ON ORAL AUGMENTIN. CONTINUATION OF PATIENTS CARE IS TO TAKE PLACE AT [facility]. RECORDS WERE FAXED TO MEDICAL CENTER AND VOICEMAIL LEFT WELL. PATIENT IS AWAITING APPOINTMENT FOR COLONOSCOPY AND POSSIBLE SIGMOID RESECTION. REFERRAL NOTE FROM DR. SÁNCHEZ WAS ALSO FAXED TO [facility]. SPOKE WITH CARLITOS THE REFERAL INTAKE PERSON AT [facility]IC REGARDING PATIENT. PATIENTS PICC LINE DRESSING WAS CHANGED TODAY. DR. BROWN TO REEVALUATE IN ONE WEEK PATIENTS LABS AND POSSIBLE DC OF PICC LINE. STRESSED TO PATIENT AND FAMILY MEMBER IF PATIENT HAS ANY PAIN, CHILLS, NAUSEA, OR PROBLEMS WITH PICC LINE TO GO IMMEDIATELY ED A [facility] [place]. [id number], JACKIE, WAS GIVEN NURSING AND CASE MANAGEMENT'S PHONE NUMBERS IF THERE ARE ANY QUESTIONS. ALL COMMUNICATION WAS DONE THROUGH TIERA IN CASE MANAGEMENT WHO SPEAKS FLUENT AUSTRALIAN. PATIENT AND FAMILY VOICED UNDERSTANDING OF ALL TEACHING DONE TODAY. PATIENT DISCHARGED AMBULATORY IN STABLE CONDITION WITH FAMILY MEMBER.
== END ==
LOC: OPONC 10:30
PROVIDERS: ATTEND Specialist
DX: K57.20 Diverticulitis of large intestine with perforation and abscess without bleeding (principal)
CPT/HCPCS: 95000

== ENCOUNTER → 2020-12-04 | Outpatient (CLI) | payer OTHER ==
[2020-12-04 15:03] VITALS: BP 125/71
[2020-12-04 15:11] LABS: HEMATOCRIT 42.6 % (42.0-52.0); HEMOGLOBIN 14.2 gm/dL (14.0-18.0); MCH 27.6 pg (26.0-34.0); MCHC 33.2 g/dL (28.0-37.0); MCV 83.2 fL (80.0-100.0); RBC 5.12 mil/uL (4.50-6.00); RDW 13.7 % (10.5-14.5); WBC 11.2 thou/uL (4.0-11.0)
[2020-12-04 15:29] LABS: ALBUMIN 3.1 g/dL (3.4-5.0); CALCIUM 8.5 mg/dL (8.5-10.1); CREATININE 0.8 mg/dL (0.7-1.3); POTASSIUM 3.8 mmol/L (3.5-5.1); TOTAL BILIRUBIN 0.5 mg/dL (0.2-1.0)
--- NOTE | 2020-12-04 15:35 | NUR ---
Double Corner Cutter spoke with the pt/his sister in law Marlee, Dr. Borges and Marlee in outpt infusion. The pt has secured an appointment with GI at [facility] on December 12 @10am next week. Family and friends are helping to pay the $400 copay. His picc line is being dc'd today and he will continue another week of oral antibiotics. Should he have any concerns or develope fever or pain he will go to the [facility] ER. He got his first covid vaccine this past weekend. All questions answered. Today is his last visit in the outpt clinic. Labs noted to be normal.
--- NOTE | 2020-12-04 16:01 | NUR ---
HERE FOR FOLLOW UP VISIT WITH DR. BROWN. LABS DRAWN. PATIENT ACCOMPANIED BY [id number]. CBC RESULTED WHILE DR. BROWN HERE. REMAINDER OF LABS FAXED TO HIS OFFICE. DR. BROWN ORDERED TO DC PICC LINE AND PATIENT TO FOLLOW UP AT [facility]. THEY HAVE AN APPOINTMENT SCHEDULED FOR December AT [facility]. PATIENT DENIES PAIN NAUSEA OR DIARRHEA. STATES HE IS EATING WELL. HAS BEEN TAKING AUGMENTIN FOR ONE WEEK AND WAS INSTRUCTED TO COMPLETE REMAINDER OF ANTIBIOTIC. PATIENT INSTRUCTED THAT IF HE HAS ANY FLARE UPS OR FEVER OR ANY DIFFICULTIES HE IS TO GO TO THE ER AT [facility] OR FOLLOW UP WITH A PHYSICIAN AT [facility]. PICC LINE WAS REMOVED AND DRESSED WITH A 2X2 AND OPSITE. PRESSURE HELD FOR 5 MINUTES. ALL COMMUNICATION WAS DONE USING INTERPETER TIERA IN CASE MANAGEMENT. PATIENT AND [id number] VOICED NO QUESTIONS AND VERBALIZED UNDERSTANDING OF ALL TEACHING DONE. TO COMPLETE SECOND WEEK OF ANTIBIOTIC TREATMENT
== END ==
LOC: OPONC 11:11
PROVIDERS: ATTEND Specialist
DX: K57.20 Diverticulitis of large intestine with perforation and abscess without bleeding (principal)